=== PATIENT | female | born 1965 | race Caucasian/White ===

== ENCOUNTER → 2019-05-02 | Outpatient (CLI) | payer BC, OTHER | LOC: M RAD 13:59 | PROVIDERS: ATTEND Family Medicine | DX: Z53.9 Procedure and treatment not carried out, unspecified reason (principal); N63.0 Unspecified lump in unspecified breast ==

== ENCOUNTER → 2019-05-09 | Outpatient (CLI) | payer BC, OTHER ==
--- NOTE | 2019-05-09 10:48 | REP ---
BILATERAL MAMMOGRAM WITH 3D TOMOSYNTHESIS AND RIGHT AXILLARY ULTRASOUND: No family history of breast cancer. [facility] lifetime risk of breast cancer 7.6%. Comparison made with prior studies most recently 12/28/2015. MLO and CC views of both breasts performed with 3D tomosynthesis. There is mild scattered fibroglandular tissue present. No mass or clustered microcalcifications are seen. Reportedly, there is a mass in the region of the right axilla which is not in the breast and therefore, cannot be included on the mammographic images. The mass is closer to the right upper arm. Real-time sonographic evaluation of the palpable abnormality performed in the region of the right axilla and upper arm region. Reportedly this has been present for the past year and the patient reports, in her opinion, it is enlarging. Sonographically, there is no cystic or solid mass in this region. IMPRESSION: BIRADS 2: BI-RADS/ACR category 2 mammogram. Benign Findings. ACR 2 benign. No mass or clustered microcalcifications in either breast. No sonographic abnormality at the site of the reported palpable abnormality in the region of the right axilla and upper arm. Clinical correlation and followup is recommended. Recommend followup mammogram in one year. This mammogram was interpreted with the aid of an FDA-approved computer-aided detection system. A. Negative x-ray reports should not delay biopsy if a dominant or clinically suspicious mass is present. B. Four to eight percent of cancers are not identified by x-ray. C. Adenosis and dense breasts may obscure an underlying neoplasm. The patient states she/he had a clinical breast exam in April 2019. The patient letter being requested is M2 Electronically Signed by Tang Camargo MD 05/10/2019 11:33 A
== END ==
LOC: M RAD 08:50
PROVIDERS: ATTEND Family Medicine
DX: N63.0 Unspecified lump in unspecified breast (principal)
CPT/HCPCS: 76642; 77066; G0279

== ENCOUNTER → 2019-05-23 | Outpatient (REF) | payer OTHER ==
[2019-05-23 17:50] LABS: CHLAMYDIA DNA AMPLIFICATION NEGATIVE (NEGATIVE); GC DNA AMPLIFICATION NEGATIVE (NEGATIVE)
[2019-05-31 14:07] LABS: HPV HYBRID CAPTURE II Negative (Negative)
== END ==
LOC: M SFHCWAGY 13:51
PROVIDERS: ATTEND Family Medicine
DX: Z12.4 Encounter for screening for malignant neoplasm of cervix (principal)

== ENCOUNTER → 2019-07-04 | Outpatient (REF) | payer OTHER | LOC: M SFHCWAGY 11:15 | PROVIDERS: ATTEND Family Medicine | DX: R87.611 Atypical squamous cells cannot exclude high grade squamous intraepithelial lesion on cytologic smear of cervix (ASC-H) (principal) ==

== ENCOUNTER → 2019-07-18 | Outpatient (REF) | payer OTHER | LOC: M SFHCWAGY 10:38 | PROVIDERS: ATTEND Family Medicine | DX: N87.1 Moderate cervical dysplasia (principal) ==

== ENCOUNTER → 2019-12-19 | Outpatient (REF) | payer OTHER | LOC: M WHC 16:55 | PROVIDERS: ATTEND Obstetrics & Gynecology | DX: N87.1 Moderate cervical dysplasia (principal) ==

== ENCOUNTER → 2020-06-08 | Outpatient (CLI) | payer BC ==
--- NOTE | 2020-06-24 17:23 | REPMRS ---
Patient History The patient states she had a clinical breast exam in 05/2020. No known family history of cancer. Took hormonal contraceptives for 8 years. Digital Woman Screen Mammo: June 08, 2020 - Exam #: [id number] Bilateral CC and MLO view(s) were taken. Technologist: Sherri Wilson, Technologist Prior study comparison: May 09, 2019, digital mammo diagnostic bilateral, performed at [facility]. December 28, 2015, digital woman screen mammo performed at [facility]. September 12, 2012, digital woman screen mammo performed at [facility]. FINDINGS: The breast tissue is almost entirely fat. The Volpara volumetric breast density category is: A. There has been no change in the appearance of the mammogram from the prior studies. There is no interval development of dominant mass, architectural distortion, or grouped microcalcification typical of malignancy. 3-D tomosynthesis shows no additional findings. Assessment: BI-RADS/ACR category 1 mammogram. Negative Mammogram. Recommendation Routine screening mammogram of both breasts in 1 year (for women over age 40). This patient's Lifetime Breast Cancer RIsk is estimated at 7.4 %. This mammogram was interpreted with the aid of an FDA-approved computer-aided dectection system. Electronically Signed By: Monty Miranda MD 06/24/20 [id number]
== END ==
LOC: M WHC 12:13
PROVIDERS: ATTEND Nurse Practitioner Women's Health
DX: Z12.31 Encounter for screening mammogram for malignant neoplasm of breast (principal); Z92.0 Personal history of contraception

== ENCOUNTER → 2020-06-08 | Outpatient (REF) | payer OTHER | LOC: M SFHCWAGY 11:18 | PROVIDERS: ATTEND Nurse Practitioner Women's Health | DX: Z12.4 Encounter for screening for malignant neoplasm of cervix (principal) ==

== ENCOUNTER → 2021-06-14 | Outpatient (REF) | payer BC, OTHER | LOC: M SFHCWAGY 12:51 | PROVIDERS: ATTEND Nurse Practitioner Women's Health | DX: Z12.4 Encounter for screening for malignant neoplasm of cervix (principal) ==

== ENCOUNTER → 2021-06-14 | Outpatient (CLI) | payer BC ==
--- NOTE | 2021-06-14 13:15 | REP ---
INDICATION: KATIE SCR MAMMO. COMPARISON: Multiple the latest 06/08/2020 TECHNIQUE: Digital screening mammography was carried out bilaterally in the CC and MLO projections using both 2D and 3D modalities and compared to the prior exams. By history, the patient has no complaints of a palpable breast abnormality or other significant breast complaints. FINDINGS: The breasts are unchanged in size and shape. There are no toni soft tissue densities or spiculated masses. There is no internal architectural distortion. There are no suspicious calcifications. There is no skin thickening or nipple retraction. The Volpara volumetric breast density pattern is b. IMPRESSION: BIRADS/ACR category 1 negative mammogram. This patient's [facility] lifetime breast cancer risk assessment score is 7.2%. This mammogram was interpreted with the aid of an FDA-approved computer-aided detection system. The patient states she had a clinical breast exam in May 2020. The patient letter being requested is M1. RECOMMENDATION: Repeat screening mammography recommended 1 year (for women over 40). <Electronically signed by Weston Elliott > 06/14/21 [id number]
== END ==
LOC: M WHC 10:42
PROVIDERS: ATTEND Nurse Practitioner Women's Health
DX: Z12.31 Encounter for screening mammogram for malignant neoplasm of breast (principal)